=== PATIENT | male | born 1990 | race Caucasian/White ===

== ENCOUNTER 2018-10-25 13:58 | Day surgery (SDC) | payer BC ==
[~2018-10-25] VITALS: Ht 190.5 cm; Wt 90.9 kg
[2018-10-25 14:30] VITALS: BP 129/72; PULSE 82; TEMP 97.8
--- NOTE | 2018-10-25 14:33 | NUR ---
TO RM AT 1410- CALL LIGHT IN REACH MOTHER AT BEDSIDE.
[2018-10-25 16:10] VITALS: BP 120/72; PULSE 71; TEMP 97.8
--- NOTE | 2018-10-25 16:10 | NUR ---
The patient is wheeled to [place] [facility] via cart by Dale VALENCIA. The patient ambulates to the chair with a steady gait and nurse standby assist. The patient's vital signs are stable. Report is obtained. The patient requests a muffin and water which is brought to him at this time. The call light is within reach and the patient's mother is at the bedside. Will continue to monitor.
[2018-10-25 16:25] VITALS: BP 106/72; PULSE 70
--- NOTE | 2018-10-25 16:25 | NUR ---
The patient's vital signs are stable. The patient tolerated the muffin and water and denies any complaints or conerns at this time. The call light is within reach and the patient's mother is at the bedside. Will continue to monitor.
[2018-10-25 16:40] VITALS: BP 112/58; PULSE 76
--- NOTE | 2018-10-25 16:40 | NUR ---
The patient's vital signs are stable. The patient has talked to Dr. Logan. The patient is ready to be discharged. The discharge instructions are reviewed with the patient and his mother and all questions are answered. The IV is removed and the tip is intact and a dressing is applied. The patient changes into his personal clothes to be discharged.
--- NOTE | 2018-10-25 16:43 | NUR ---
The patient ambulates to the patient entrance with a steady gait and with Karie VALENCIA to be discharged home via personal vehicle by his mother. The patient is sent home with his discharge instructions and education packet.
== END 2018-10-25 16:43 | disposition home or self-care (01) ==
LOC: SDCO 13:58
DX: K29.80 Duodenitis without bleeding (principal); R19.7 Diarrhea, unspecified; R63.4 Abnormal weight loss; Z87.891 Personal history of nicotine dependence
CPT/HCPCS: OP; J2250; J2405; J3010; J7030